=== PATIENT | male | born 1965 | race Hispanic/Latino ===

== ENCOUNTER 2021-12-21 16:35 | Inpatient (IN) | payer OTHER, MEDICARE ==
[~2021-12-21] VITALS: Ht 177.8 cm; Wt 57.2 kg
[2021-12-21] MEDS ORDERED: HYDROCODONE/ACETAMINOPHEN 5/325 MG TAB PO ONE (18:00)
[2021-12-21] MEDS ORDERED: CYCLOBENZAPRINE HCL 10 MG TABLET PO ONE (18:00)
[2021-12-21] MEDS ORDERED: CYCLOBENZAPRINE HCL 10 MG TABLET ONE (18:20)
[2021-12-21] MEDS ORDERED: HYDROCODONE/ACETAMINOPHEN 10/325 MG TAB ONE (18:21)
[2021-12-21 18:30] LABS: EOSINOPHILS % (AUTO) 6.6 % (0.0-8.0); HEMATOCRIT 32.2 % (42-54); LYMPHOCYTES % (AUTO) 18.4 % (21.0-51.0); MEAN CORPUSCULAR HEMOGLOBIN 29.3 pg (27.0-33.0); MEAN CORPUSCULAR VOLUME 91.7 fL (79-99); MONOCYTES % (AUTO) 8.5 % (3.0-13.0); NEUTROPHILS % (AUTO) 65.2 % (40.0-77.0); PLATELET COUNT (AUTO) 174 K/uL (130-400); RED BLOOD CELL COUNT(AUTO) 3.51 MIL/uL (4.50-6.20); RED CELL DISTRIBUTION WIDTH 16.8 % (11.0-15.5); WHITE BLOOD COUNT (AUTO) 7.2 K/uL (4.8-10.8)
[2021-12-21 18:39] LABS: POTASSIUM 5.8 mmol/L (3.5-5.1)
[2021-12-21 19:10] LABS: BILIRUBIN,TOTAL 1.7 mg/dL (0.2-1.0); CREATININE 7.4 mg/dL (0.5-1.5); TOTAL PROTEIN, SERUM 6.6 g/dL (6.0-8.3)
[2021-12-21] MEDS ORDERED: NITROGLYCERIN 1GM OINT 1 INCH/1GM TD ONE (19:30)
[2021-12-21] MEDS ORDERED: ASPIRIN 325MG TAB PO ONE (19:30)
[2021-12-21] MEDS ORDERED: MIDODRINE HCL 5 MG TABLET ONE (20:10)
[2021-12-21] MEDS ORDERED: ACETAMINOPHEN 325 MG TAB PO PRN (20:30)
[2021-12-21] MEDS ORDERED: MIDODRINE HCL 5 MG TABLET PO SCH (20:30)
[2021-12-21] MEDS ORDERED: DOPAMINE 800MG/D5 250ML 250 ML IV SCH (20:30)
[2021-12-21] MEDS ORDERED: ONDANSETRON 4MG INJ IVP PRN (20:30)
[2021-12-22] VITALS (19 sets, daily range): BP systolic 126–175; BP diastolic 78–110
[2021-12-22] MEDS: HYDROMORPHONE 0.5 MG SYG (0.5MG/0.5ML) IVP PRN ×4 (00:17→14:59)
[2021-12-22 05:41] LABS: CREATINE KINASE, TOTAL 18 U/L (21-232); MYOGLOBIN 115 ng/mL (10-92)
[2021-12-22] MEDS ORDERED: LIDOCAINE 5% TOPICAL PATCH TP ONE (13:00)
[2021-12-22] MEDS: ASPIRIN 81MG CHEW TAB PO SCH (13:16)
[2021-12-22] MEDS: PANTOPRAZOLE 40 MG TAB DR PO SCH (13:16)
[2021-12-22 15:46] LABS: CREATININE 4.6 mg/dL (0.5-1.5); CRP QUANTITATIVE 73.7 mg/L (0.00-9.0); POTASSIUM 5.2 mmol/L (3.5-5.1)
[2021-12-22] MEDS ORDERED: VANCOMYCIN PROTOCOL PER PHARMACY IV SCH (17:00)
[2021-12-22] MEDS ORDERED: VANCOMYCIN 1G/250ML KIT 250 ML IV SCH (18:00)
[2021-12-22] MEDS ORDERED: 0.9% NACL 250ML 250 ML ONE (18:09)
[2021-12-22] MEDS: CEFEPIME HCL 1 GM VIAL IV SCH (18:17)
[2021-12-22 20:38] LABS: HEPATITIS B SURFACE ANTIGEN Non-Reactive (Negative)
[2021-12-23] VITALS (21 sets, daily range): BP systolic 110–184; BP diastolic 41–104
[2021-12-23] MEDS: HYDROMORPHONE 0.5 MG SYG (0.5MG/0.5ML) IVP PRN ×4 (03:08→22:06)
[2021-12-23 07:20] LABS: BASOPHILS % (AUTO) 0.8 % (0.0-5.0); EOSINOPHILS % (AUTO) 3.5 % (0.0-8.0); LYMPHOCYTES % (AUTO) 16.8 % (21.0-51.0); MEAN CORPUSCULAR HEMOGLOBIN 29.6 pg (27.0-33.0); MEAN CORPUSCULAR HGB CONC 32.7 g/dL (32.0-36.0); MEAN CORPUSCULAR VOLUME 90.4 fL (79-99); MONOCYTES % (AUTO) 15.4 % (3.0-13.0); NEUTROPHILS % (AUTO) 63.1 % (40.0-77.0); PLATELET COUNT (AUTO) 185 K/uL (130-400); RED BLOOD CELL COUNT(AUTO) 3.65 MIL/uL (4.50-6.20); RED CELL DISTRIBUTION WIDTH 16.7 % (11.0-15.5); WHITE BLOOD COUNT (AUTO) 7.4 K/uL (4.8-10.8)
[2021-12-23 07:42] LABS: ALBUMIN 2.8 g/dL (3.5-5.0); BILIRUBIN,TOTAL 1.2 mg/dL (0.2-1.0); MAGNESIUM 2.4 mg/dL (1.80-2.40); POTASSIUM 5.3 mmol/L (3.5-5.1); TOTAL PROTEIN, SERUM 7.3 g/dL (6.0-8.3)
[2021-12-23] MEDS: PANTOPRAZOLE 40 MG TAB DR PO SCH (08:54)
[2021-12-23] MEDS: ASPIRIN 81MG CHEW TAB PO SCH (08:54)
[2021-12-23] MEDS: CEFEPIME HCL 1 GM VIAL IV SCH (19:51)
[2021-12-23] MEDS ORDERED: VANCOMYCIN 750MG VIAL IVPB SCH (21:00)
[2021-12-24] VITALS: BP 145/42
[2021-12-24 04:00] VITALS: BP 142/45
[2021-12-24] MEDS: HYDROMORPHONE 0.5 MG SYG (0.5MG/0.5ML) IVP PRN ×2 (04:28→10:53)
[2021-12-24 05:11] LABS: HEMATOCRIT 32.9 % (42-54); MEAN CORPUSCULAR HEMOGLOBIN 30.1 pg (27.0-33.0); MEAN CORPUSCULAR VOLUME 88.4 fL (79-99); RED BLOOD CELL COUNT(AUTO) 3.72 MIL/uL (4.50-6.20); RED CELL DISTRIBUTION WIDTH 16.6 % (11.0-15.5); WHITE BLOOD COUNT (AUTO) 8.4 K/uL (4.8-10.8)
[2021-12-24 05:22] LABS: CREATININE 4.6 mg/dL (0.5-1.5); POTASSIUM 4.3 mmol/L (3.5-5.1)
[2021-12-24 07:30] VITALS: BP 114/22
[2021-12-24] MEDS: ASPIRIN 81MG CHEW TAB PO SCH (09:40)
[2021-12-24] MEDS: PANTOPRAZOLE 40 MG TAB DR PO SCH (09:40)
[2021-12-24 11:00] VITALS: BP 116/75
[2021-12-24] MEDS ORDERED: HYDROCODONE/ACETAMINOPHEN 5/325 MG TAB PO PRN (13:00)
[2021-12-24] MEDS ORDERED: ASPI-1005 PO ×2 (16:16→17:03)
== END 2021-12-24 18:00 | disposition home or self-care (01) | DRG 314 ==
LOC: EDH 16:35 → EDHIP 19:49 → 4CH 12-22 07:30
PROVIDERS: ADMIT Hospitalist; ATTEND Hospitalist
PROC: 5A1D70Z Performance of Urinary Filtration, Intermittent, Less than 6 Hours Per Day (ICD-10-PCS; principal; 2021-12-22)
PROC: 5A1D70Z Performance of Urinary Filtration, Intermittent, Less than 6 Hours Per Day (ICD-10-PCS; 2021-12-23)
DX: I95.9 Hypotension, unspecified (principal); N18.6 End stage renal disease; I12.0 Hypertensive chronic kidney disease with stage 5 chronic kidney disease or end stage renal disease; I24.9 Acute ischemic heart disease, unspecified; I25.10 Atherosclerotic heart disease of native coronary artery without angina pectoris; E11.51 Type 2 diabetes mellitus with diabetic peripheral angiopathy without gangrene; R77.8 Other specified abnormalities of plasma proteins; E11.22 Type 2 diabetes mellitus with diabetic chronic kidney disease; E78.5 Hyperlipidemia, unspecified; Z20.822 Contact with and (suspected) exposure to COVID-19; D64.9 Anemia, unspecified; I99.8 Other disorder of circulatory system; E03.9 Hypothyroidism, unspecified; E78.00 Pure hypercholesterolemia, unspecified; I44.0 Atrioventricular block, first degree; Z99.2 Dependence on renal dialysis; Z91.11 Patient's noncompliance with dietary regimen; Z85.3 Personal history of malignant neoplasm of breast; Z90.12 Acquired absence of left breast and nipple; Z95.1 Presence of aortocoronary bypass graft; Z88.1 Allergy status to other antibiotic agents; Z88.8 Allergy status to other drugs, medicaments and biological substances; Z83.3 Family history of diabetes mellitus
CPT/HCPCS: 36415; 71101; 71250; 80048; 80053; 82550; 82948; 83605; 83735; 83874; 84145; 84484; 85025; 85027; 85651; 86140; 86704; 86706; 87040; 87340; 87635; 90935; 93005; G0378; J0692; J1170; J3370; J7050

== ENCOUNTER 2022-01-21 02:58 | Observation (INO) | payer OTHER, MEDICARE ==
[~2022-01-21] VITALS: Ht 177.8 cm; Wt 62.8 kg
[2022-01-21] VITALS (16 sets, daily range): BP systolic 90–165; BP diastolic 60–90
[~2022-01-21 02:58] MED LIST: ASPI-1005 PO
[2022-01-21 03:54] LABS: BASOPHILS % (AUTO) 0.6 % (0.0-5.0); HEMATOCRIT 30.7 % (42-54); LYMPHOCYTES % (AUTO) 13.7 % (21.0-51.0); MEAN CORPUSCULAR HEMOGLOBIN 30.1 pg (27.0-33.0); MEAN CORPUSCULAR HGB CONC 32.6 g/dL (32.0-36.0); MEAN CORPUSCULAR VOLUME 92.5 fL (79-99); MONOCYTES % (AUTO) 11.5 % (3.0-13.0); NEUTROPHILS % (AUTO) 67.9 % (40.0-77.0); PLATELET COUNT (AUTO) 175 K/uL (130-400); RED BLOOD CELL COUNT(AUTO) 3.32 MIL/uL (4.50-6.20); RED CELL DISTRIBUTION WIDTH 14.8 % (11.0-15.5); WHITE BLOOD COUNT (AUTO) 6.5 K/uL (4.8-10.8)
[2022-01-21 03:59] LABS: CREATININE 7.4 mg/dL (0.5-1.5)
[2022-01-21] MEDS ORDERED: HYDROCODONE/ACETAMINOPHEN 5/325 MG TAB PO ONE (04:00)
[2022-01-21 04:05] LABS: BILIRUBIN,TOTAL 0.5 mg/dL (0.2-1.0); TOTAL PROTEIN, SERUM 7.3 g/dL (6.0-8.3)
[2022-01-21] MEDS ORDERED: CALCIUM GLUC 1GM/10ML VIAL ONE (04:14)
[2022-01-21] MEDS ORDERED: SODIUM BICARB 50MEQ 50ML VIAL 50 ML ONE (04:14)
[2022-01-21] MEDS ORDERED: DEXTROSE 50%-WATER 50 ML DISP.SYRIN IV ONE (04:15)
[2022-01-21] MEDS ORDERED: INSULIN HUMULIN R 100 UNIT/ML 3ML ONE (04:15)
[2022-01-21 06:16] LABS: CREATININE 7.5 mg/dL (0.5-1.5); POTASSIUM 5.9 mmol/L (3.5-5.1)
[2022-01-21 06:21] LABS: ALBUMIN 2.9 g/dL (3.5-5.0); BILIRUBIN,TOTAL 0.4 mg/dL (0.2-1.0)
[2022-01-21] MEDS ORDERED: ACETAMINOPHEN 325 MG TAB PO PRN ×2 (10:00)
[2022-01-21 10:51] LABS: INR 1.11 (0.85-1.15)
[2022-01-21 10:52] LABS: PARTIAL THROMBOPLASTIN TIME 38.6 SEC (26.3-35.5)
[2022-01-21 16:56] LABS: HEMOGLOBIN A1C 6.4 % (4.0-6.0)
[2022-01-21] MEDS ORDERED: DEXTROSE 50%-WATER 50 ML DISP.SYRIN IV PRN (17:00)
[2022-01-21] MEDS ORDERED: GLUCAGON 1MG KIT 1 MG ML IM PRN (17:00)
[2022-01-21] MEDS ORDERED: HYDROCODONE/ACETAMINOPHEN 5/325 MG TAB PO PRN (17:30)
[2022-01-21] MEDS ORDERED: FAMOTIDINE 20MG TAB PO SCH (21:00)
[2022-01-21] MEDS ORDERED: HEPARIN 5,000 UNIT VIAL SQ SCH (21:00)
== END 2022-01-21 21:10 | disposition home or self-care (01) ==
LOC: EDH 02:58 → EDHIP 09:39 → 3AH 11:44
PROVIDERS: ADMIT Hospitalist; ATTEND Hospitalist
DX: E87.5 Hyperkalemia (principal); E87.70 Fluid overload, unspecified; I12.0 Hypertensive chronic kidney disease with stage 5 chronic kidney disease or end stage renal disease; N18.6 End stage renal disease; D63.1 Anemia in chronic kidney disease; D69.6 Thrombocytopenia, unspecified; E11.22 Type 2 diabetes mellitus with diabetic chronic kidney disease; E11.51 Type 2 diabetes mellitus with diabetic peripheral angiopathy without gangrene; E78.00 Pure hypercholesterolemia, unspecified; E78.5 Hyperlipidemia, unspecified; G89.29 Other chronic pain; I25.10 Atherosclerotic heart disease of native coronary artery without angina pectoris; I25.5 Ischemic cardiomyopathy; M25.511 Pain in right shoulder; M19.90 Unspecified osteoarthritis, unspecified site; Z91.19 Patient's noncompliance with other medical treatment and regimen; Z95.1 Presence of aortocoronary bypass graft; Z99.2 Dependence on renal dialysis; Z79.82 Long term (current) use of aspirin; Z79.899 Other long term (current) drug therapy; Z98.890 Other specified postprocedural states
CPT/HCPCS: 36415; 73030; 80053 ×2; 83036; 84132; 85025; 85610; 85730; 96374; 99284; G0378 ×8; J0610; J1815; J3490; J7070; 90935